=== PATIENT | female | born 1945 | race Caucasian/White ===

== ENCOUNTER 2017-12-21 10:46 | Observation (INO) | payer MEDICARE ==
[~2017-12-21] VITALS: Ht 167.6 cm; Wt 72.0 kg
[2017-12-21] MEDS ORDERED: LEVO125T5 PO (12:32)
[2017-12-21] MEDS ORDERED: GABA300C10 PO (12:32)
[2017-12-21] MEDS ORDERED: RIVA15TA PO (12:32)
[2017-12-21] MEDS ORDERED: FLUO5DRO2 PO (12:32)
[2017-12-21] MEDS ORDERED: VALA500T PO (12:32)
[2017-12-21] MEDS ORDERED: SALS750T11 PO (12:32)
[2017-12-21] MEDS ORDERED: LEUC5TAB12 PO (12:32)
[2017-12-21] MEDS ORDERED: DENO60DI IM (12:32)
[2017-12-21] MEDS ORDERED: ATOR-2 PO (12:32)
[2017-12-21] MEDS ORDERED: LOSA25TA5 PO (12:32)
[2017-12-21] MEDS ORDERED: METH2.5T PO (12:32)
[2017-12-21] MEDS: SODIUM CHLORIDE 0.9% 1,000 ML IV SCH ×2 (12:35→20:35)
[2017-12-21] MEDS ORDERED: VANCOMYCIN PMX 1GM/200ML 200 ML IVPB SCH (13:00)
[2017-12-21] MEDS ORDERED: FENTANYL PF 100 MCG/2ML ONE (13:03)
[2017-12-21] MEDS ORDERED: MIDAZOLAM 1 MG/ML, 5ML ONE (13:03)
[2017-12-21] MEDS ORDERED: VANCOMYCIN 500 MG ONE (13:03)
[2017-12-21] MEDS ORDERED: LIDOCAINE/PF 1%, 30ML ONE (13:04)
[2017-12-21] MEDS ORDERED: VANCOMYCIN PMX 1GM/200ML 200 ML ONE (13:04)
[2017-12-21] MEDS ORDERED: HYDROcodone/APAP 5/325 TABLET PO PRN (14:30)
[2017-12-21] MEDS ORDERED: ZOLPIDEM 5MG TABLET PO PRN (14:30)
[2017-12-21 14:54] VITALS: BP 116/68
[2017-12-21 18:47] VITALS: BP 133/73
[2017-12-21] MEDS ORDERED: ATORVASTATIN 80 MG TABLET PO SCH (21:00)
[2017-12-21] MEDS ORDERED: GABAPENTIN 300 MG CAPSULE PO SCH (22:00)
[2017-12-21] MEDS: FLUOROMETHOLONE RIGHTEYE SCH (22:30)
[2017-12-21] MEDS: SODIUM CHLORIDE FLUSH 10ML SYR IVF SCH (23:12)
[2017-12-22 03:17] VITALS: BP 113/65
[2017-12-22] MEDS: SODIUM CHLORIDE 0.9% 1,000 ML IV SCH (04:35)
[2017-12-22 07:19] VITALS: BP 110/63
[2017-12-22] MEDS: FLUOROMETHOLONE RIGHTEYE SCH (07:52)
[2017-12-22] MEDS: SODIUM CHLORIDE FLUSH 10ML SYR IVF SCH (07:52)
[2017-12-22] MEDS ORDERED: GABAPENTIN 300 MG CAPSULE PO SCH (09:00)
[2017-12-22] MEDS ORDERED: LOSARTAN 25MG TABLET PO SCH (09:00)
[2017-12-22] MEDS ORDERED: VALACYCLOVIR 500MG TABLET PO SCH (09:00)
[2017-12-22] MEDS ORDERED: LEVOTHYROXINE 125 MCG TABLET PO SCH (09:00)
== END 2017-12-22 11:49 | disposition home or self-care (01) ==
LOC: CACL 10:46 → 5SO 14:15 → CACL 14:37 → DCLOUNGE 12-22 11:36
PROVIDERS: ADMIT Internal Medicine Cardiovascular Disease; ATTEND Internal Medicine Cardiovascular Disease
DX: I44.1 Atrioventricular block, second degree (principal); I48.0 Paroxysmal atrial fibrillation; I10 Essential (primary) hypertension; E03.9 Hypothyroidism, unspecified; I65.29 Occlusion and stenosis of unspecified carotid artery; M81.0 Age-related osteoporosis without current pathological fracture; E78.5 Hyperlipidemia, unspecified; I49.5 Sick sinus syndrome
CPT/HCPCS: 33208; 71045; 93005; 99156; 99157; C1779; C1785; C1892; G0378; J2250; J3010; J3370; J3490